=== PATIENT | female | born 1945 | race Caucasian/White ===

== ENCOUNTER 2024-09-14 19:38 | Emergency (ER) | payer MEDICARE, SELFPAY ==
[2024-09-14 19:39] VITALS: BP 192/78; PULSE 75; RESP 18; TEMP 36.8; O2SAT 100
[2024-09-14 19:42] VITALS: BMI 26.6
--- NOTE | 2024-09-14 21:00 | EDS_ITS ---
HPI History of Present Illness Chief Complaint: Weakness Informant: patient Onset/Context/Timing Onset: Today Context: Gradual Onset Timing: Continuous Quality: Weakness Location: Generalized Worsened by: Nothing Relieved by: Nothing Narrative Narrative: Patient presents with generalized weakness and fusion that was noticed today. Family states the patient was had a family get together today and was having some increase in her sleep during the event. Family reports patient was having generalized weakness and was confused at times. Family states patient had 2 episodes of nausea and vomiting. Family denies any fevers or chills. Patient denies any chest pain or shortness of breath. Family did not notice any focal weakness or facial droop. Family states the patient was having weakness with her hands and dropping things today. Family states that this was with both hands and not anything unilateral. PFSH PFS Medical History Hypertension Neuropathy Diabetes mellitus FHx: cholecystectomy Allergy/AdvReac Type Severity Reaction Status Date / Time meperidine (From Demerol) Allergy Rash Verified 09/14/24 19:42 methocarbamol Allergy Itching Verified 09/14/24 19:43 Surgical History History of hysterectomy Social History Smoking Status: Never smoker ROS ROS ED Constitutional Constitutional ED: Denies chills or fever(s) Eyes Eyes: Denies blurry vision or change in vision ENT ENT ED: Denies rhinorrhea or sore throat Cardiovascular Cardiovascular: Denies chest pain or palpitations Respiratory/Chest Respiratory/Chest: Denies cough or dyspnea Gastrointestinal Gastrointestinal: Reports nausea and vomiting Genitourinary Genitourinary ED: Denies dysuria or hematuria Musculoskeletal Musculoskeletal: Denies back pain or neck pain Integumentary Denies abscess or rash Neurologic Neurologic: Reports weakness; Denies headache(s) Allergic/Immunologic Allergic/Immunologic ED: Denies mouth swelling or urticaria EXAM Physical Exam Const Vital Signs: 09/14/24 19:39 09/14/24 20:18 09/14/24 21:39 Temperature 98.3 F Temperature Source Oral Pulse Rate 75 69 Respiratory Rate 18 12 Respiratory Effort Normal Respiratory Pattern Normal Blood Pressure 192/78 H 174/78 H Blood Pressure Mean 116 110 Pulse Ox 100 100 Oxygen Delivery Method Room Air Room Air 09/14/24 23:00 Temperature Temperature Source Pulse Rate 66 Respiratory Rate 10 L Respiratory Effort Respiratory Pattern Blood Pressure 143/71 H Blood Pressure Mean 95 Pulse Ox 96 Oxygen Delivery Method Room Air Positive well nourished and well developed General Appearance ED: well developed and NAD HEENT Reports moist mucous membranes Neck supple and no JVD Resp normal respiratory effort and clear to auscultation bilaterally Cardio regular rate and regular rhythm GI non-tender and non-distended Palpation: soft Neuro oriented x3, CN's II-XII intact bilaterally and no sensory deficits noted Sensorium / Orientation: alert Motor Exam: general weakness Psych mental status grossly normal MDM MDM MDM Narrative Medical decision making narrative: Differential diagnosis includes dehydration, electrolyte abnormality, urinary tract infection, stroke, sepsis, and viral illness. CT scan of the brain will be obtained to assess for stroke and intracranial bleeding. CBC will be obtained to assess for leukocytosis and anemia. Basic metabolic profile will be obtained to assess for electrolyte abnormality and renal function. Urinalysis will be obtained to assess for urinary tract infection and hematuria. PT with INR and PTT will be obtained to assess for coagulopathy. Serum lactate will be obtained to assess for sepsis. COVID-19, influenza, and RSV PCR will be obtained to assess for viral illness. History & Record Review Additional record(s) reviewed:: No prior records Lab Data Attestation: I reviewed the patient's lab results. Lab results narrative: CBC was reviewed. There is a mild anemia with hemoglobin of 10.6 and hematocrit 32.5. PT with INR and PTT were reviewed and were within normal limits. Basic metabolic profile was reviewed. Glucose was mildly elevated at 171. BUN was mildly elevated at 29 and creatinine was 1.33. There are no prior results for comparison. Labs: Laboratory Results - last 24 hr 09/14/24 09/14/24 09/14/24 20:29 21:31 21:46 WBC 8.9 RBC 3.60 L Hgb 10.6 L Hct 32.5 L MCV 90.3 MCH 29.4 MCHC 32.6 RDW Std Deviation 42.9 RDW Coeff of Kera 13.2 Plt Count 304 MPV 10.4 Immature Gran % (Auto) 1.300 H Neut % (Auto) 65.7 Lymph % (Auto) 19.9 Story % (Auto) 9.9 Eos % (Auto) 2.6 Baso % (Auto) 0.6 Absolute Neuts (auto) 5.9 Absolute Lymphs (auto) 1.77 Nucleated RBC % 0 PT 12.9 INR 1.0 APTT 27.1 Sodium 133 Potassium 4.4 Chloride 96 L Carbon Dioxide 25.6 Anion Gap 12 BUN 29 H Creatinine 1.33 H Estim Creat Clear Calc 28.93 L Est GFR (MDRD) Non-Af 40 L BUN/Creatinine Ratio 21.6 H Glucose 171 H Lactic Acid 1.2 Calcium 9.6 Urine Color Urine Clarity Urine pH Ur Specific [place] Urine Protein Urine Glucose (UA) Urine Ketones Urine Occult Blood Urine Nitrite Urine Bilirubin Urine Urobilinogen Ur Leukocyte Esterase Urine RBC Urine WBC Ur Squamous Epith Cells Urine Bacteria Urine Mucus 09/14/24 22:35 WBC RBC Hgb Hct MCV MCH MCHC RDW Std Deviation RDW Coeff of Kera Plt Count MPV Immature Gran % (Auto) Neut % (Auto) Lymph % (Auto) Story % (Auto) Eos % (Auto) Baso % (Auto) Absolute Neuts (auto) Absolute Lymphs (auto) Nucleated RBC % PT INR APTT Sodium Potassium Chloride Carbon Dioxide Anion Gap BUN Creatinine Estim Creat Clear Calc Est GFR (MDRD) Non-Af BUN/Creatinine Ratio Glucose Lactic Acid Calcium Urine Color Yellow Urine Clarity Clear Urine pH 6.5 Ur Specific [place] 1.010 Urine Protein 15 H Urine Glucose (UA) Normal Urine Ketones Negative Urine Occult Blood Negative Urine Nitrite Negative Urine Bilirubin Negative Urine Urobilinogen Normal Ur Leukocyte Esterase Negative Urine RBC 0 SEEN Urine WBC 0 SEEN Ur Squamous Epith Cells 0 SEEN Urine Bacteria 0 SEEN Urine Mucus 0 SEEN Radiography Diagnostic Testing: Clinical Impression(s) from Imaging Studies Brain CT 09/14/24 21:23 IMPRESSION: No acute intracranial finding. Reading Location: [id number] CT scan of the brain was obtained. There is no acute intracranial abnormality. This was interpreted by the radiologist and was also independently reviewed by myself. Treatment and Re-Evaluation :: Patient was given IV fluids. Patient and family were advised of the findings. Patient was instructed to drink plenty of fluids. Patient was instructed to follow-up with her primary care physician in 5 to 7 days. Patient and family understood and were agreeable with the plan. All questions were answered. Discharge Plan Triage Chief Complaint: Weakness ED Provider: Tom Cornell Dx/Rx/DC Orders Clinical Impression: Generalized weakness, Episodic confusion Instructions: ED Confusion, ED Weakness Uncertain Cause Primary Care Provider: Celestine Raphael Referrals: Celestine Raphael MD [Primary Care Provider] - 3-5 Days Print Language: Maldivian Disposition Disposition: Home, Self Care
--- NOTE | 2024-09-14 21:23 | CT_ITS ---
EXAM: BRAIN/HEAD WITHOUT CONTRAST CLINICAL HISTORY: 79 y/o F with CONFUSION. COMPARISON: None. TECHNIQUE: Routine CT imaging of the head without IV contrast. Additional multiplanar reformats were obtained. Dose reduction techniques were used including intermediate exposure control (AEC),iterative reconstruction technique, and/or mA and/or KV dose adjustments based on patient's size. FINDINGS: The ventricles, sulci and cisterns are mildly prominent, suggestive of brain parenchymal volume loss. There is no evidence of acute intracranial hemorrhage or herniation. There is no midline shift, mass effect, or extra-axial collection. Severe patchy and confluent supratentorial white matter hypodensities. Prior ocular lens replacements. The visualized paranasal sinuses and mastoids are unremarkable. No acute calvarial fracture or scalp hematoma. CT/Brain/Head without Contrast IMPRESSION: No acute intracranial finding. Reading Location: [id number]
[2024-09-14 21:39] VITALS: BP 174/78; PULSE 69; RESP 12; O2SAT 100
[2024-09-14 22:04] LABS: Hematocrit 32.5 % (37-47); Hemoglobin 10.6 g/dL (12.0-15.0); Immature Granulocytes Count 0.120 X10^3/uL (0.0-0.0); Mean Corp Hgb Conc 32.6 g/dL (32-36); Mean Corpuscular Volume 90.3 fL (81-99); Mean Platelet Vol. 10.4 fl (6.2-12.0); NRBC Flagged by Analyzer 0 % (0-5); Platelet Count 304 K/mm3 (150-450); RBC Distribution Width CV 13.2 % (11.6-14.6); RBC Distribution Width SD 42.9 fl (35.1-43.9); Red Blood Count 3.60 M/mm3 (4.2-5.4); White Blood Count 8.9 K/mm3 (4.4-11.0)
[2024-09-14 22:08] LABS: Prothrombin Time (Protime)PT. 12.9 SECONDS (11.7-14.9)
[2024-09-14 22:09] LABS: Partial Thromboplast Time 27.1 Seconds (24.1-36.2)
[2024-09-14 22:16] LABS: Anion Gap 12 (5-15); BUN 29 mg/dL (4-19); BUN/Creat Ratio 21.6 RATIO (10-20); Calcium,Total 9.6 mg/dL (7.6-11.0); Carbon Dioxide 25.6 mmol/L (21.0-32.0); Chloride 96 mmol/L (98-108); Estimated Creatinine Clearance 28.93 ml/min (50-250); Glucose 171 mg/dL (70-99); Potassium 4.4 mmol/L (3.3-5.1)
[2024-09-14 22:42] LABS: Mucous, Urine 0 SEEN /hpf (<or=2+); Red Blood Cells-Urine 0 SEEN /hpf (0-5); Squamous Epithelial Cells - UA 0 SEEN /hpf (5-10)
[2024-09-14 22:43] LABS: Color, Urine Yellow (Yellow); Glucose, Dipstick Normal (Normal); Ketone-Dipstick Negative (Negative); Leukocyte Esterase-Dipstick Negative /ul (Negative); Nitrite-Dipstick Negative (Negative); Occult Blood-Urine Negative /ul (Negative); Protein-Dipstick 15 mg/dl (Negative); Specific Gravity, Urine 1.010 (1.002-1.030); Urine Bilirubin Dipstick Negative (Negative)
[2024-09-14 23:00] VITALS: BP 143/71; PULSE 66; RESP 10; O2SAT 96
[2024-09-14] MEDS: 0.9% Normal Saline (1000mL) 1,000 ML 1000 ML IV (23:28)
[2024-09-15 01:05] VITALS: BP 169/80; PULSE 78; RESP 18; TEMP 36.6; O2SAT 95
== END 2024-09-15 01:06 | disposition home or self-care (01) ==
PROVIDERS: Emergency Provider Emergency Medicine; PCP Family Medicine; Visit Provider Emergency Medicine
DX: R53.1 Weakness (principal); E11.40 Type 2 diabetes mellitus with diabetic neuropathy, unspecified; R41.0 Disorientation, unspecified
CPT/HCPCS: 70450; 80048; 81001; 83605; 85025; 85610; 85730; 87631; 96360; 96361; 99283; A4216